=== PATIENT | female | born 1995 ===

== ENCOUNTER 2019-02-17 06:20 | Day surgery (SDC) | payer BC ==
[2019-02-07 17:18] VITALS: BMI 21.2
[2019-02-17] MEDS ORDERED: Propofol 10 mg/ml Inj (20 ML) ONE (07:23)
[2019-02-17] MEDS ORDERED: Midazolam 2 MG/2 ML VIAL ONE (07:23)
[2019-02-17] MEDS ORDERED: Rocuronium 10 mg/ml (5 ml) ONE (07:24)
[2019-02-17] MEDS ORDERED: Lidocaine 1% Inj (20ml) ONE (07:28)
[2019-02-17] MEDS ORDERED: Bupivacaine 0.5% 50 ML IJ ONE (07:39)
[2019-02-17] MEDS ORDERED: Neostigmine Methylsulfate 3mg/3ml Syringe IV ONE (09:03)
[2019-02-17] MEDS ORDERED: Glycopyrrolate 0.2 mg/ml (2ml vial) ONE (09:04)
[2019-02-17] MEDS ORDERED: Bacitracin 500 Units/gm Oint Foilpak UD ONE (09:42)
--- NOTE | 2019-02-17 10:35 | PCM.SURG1 ---
Surgeon's Initial Post Op Note - Surgeon's Notes Surgeon: MD Diane Admission Nurse Coordinator: Per, PGY3. , PGY4 Pre-Operative Diagnosis: Right lobe thyroid goiter Operative Findings: Right lobe thyroid goiter Post-Operative Diagnosis: Right lobe thyroid goiter Operation Performed: Right thyroid lobectomy Specimen/Specimens Removed: right thyroid with isthmus Estimated Blood Loss: EBL {In ML}: 10 Date of Surgery/Procedure: 02/17/19 Time of Surgery/Procedure: 08:00
[2019-02-17] MEDS ORDERED: HYDROmorphone 0.5 mg/0.5 ml ISec IVP PRN ×2 (10:40→10:45)
[2019-02-17] MEDS ORDERED: HYDROmorphone 0.5 mg/0.5 ml ISec IVP ONE ×2 (10:41→11:04)
[2019-02-17] MEDS ORDERED: Lactated Ringer's 1,000 ML IV SCH (10:45)
[2019-02-17] MEDS ORDERED: HYDROmorphone 0.5 mg/0.5 ml ISec ONE ×2 (10:45→11:04)
[2019-02-17 11:53] VITALS: RESP 20
[2019-02-17 12:19] VITALS: TEMP 98.2; O2SAT 97
[2019-02-17 16:55] VITALS: BP 116/66; PULSE 81
--- NOTE | 2019-02-17 21:49 | OP ---
PROCEDURE DATE: 02/17/2019 PREOPERATIVE DIAGNOSIS: Right thyroid goiter. POSTOPERATIVE DIAGNOSIS: Right thyroid goiter. PROCEDURE PERFORMED: Right thyroid lobectomy with isthmusectomy. SURGEON: Tejinder Contreras MD ASSISTANTS: Issac Albarado DO, PGY-3 and Ludwin Wang DO, PGY-4 ANESTHESIOLOGIST: Terence Pressley MD ANESTHESIA: General. ESTIMATED BLOOD LOSS: 10 mL. HISTORY OF PATIENT: This is a 23-year-old female with a history of right thyroid goiter which she says she has been treated medically for the last 10 years. The patient states she has had biopsies of the thyroid, which all came back negative for neoplasm. She does admit to a history of tenderness in the right neck and also a history of dysphagia. DESCRIPTION OF PROCEDURE: The patient was sedated and intubated in the usual sterile fashion. The patient was placed in a supine position with the shoulder roll placed under the shoulders and head extended to expose the anterior neck. The anterior neck was then prepped and draped in the usual sterile fashion all the way down to the clavicles and up to the mandible. Incision was made along the anterior crease of the neck, measuring approximately 5 cm. Dissection was done to the subplatysmal layer. A flap was made up to the thyroid cartilage and also down to the sternal notch. Using an electrocautery, the anterior cervical fascia was then incised longitudinally therefore exposing the anterior neck strap muscles, which were then retracted laterally on both sides exposing the thyroid itself. Upon exposure of the thyroid, dissection was done with a harmonic in order to release the thyroid off of this posterior fascia using the harmonic. Dissection was done all the way on the right lateral aspect, the right superior and the right lower aspects. Care was taken to minimize any bleeding from the veins entering the thyroid. Care was taken to be as close to the thyroid capsule as possible. Upon dissecting the thyroid capsule all the way around on the right side, the right thyroid was able to be exhumed through the excision. Continuing with the harmonic, the isthmus was also dissected and transected as they appeared large and covered the anterior portion of the neck. After removing the right thyroid lobe and the isthmus, this was sent for a fresh frozen pathology. Further examination of the area of surgery was done to identify structures including the parathyroid which was seen and also the recurrent laryngeal nerve which was seen and protected. The nerve was well away from the operating field. Care was then taken to minimize any oozing from the operative bed with the harmonic. The area of the anterior neck was irrigated with normal sterile water and suctioned. Surgicel was used to minimize any further bleeding. The anterior strap muscles were then approximated together using a 3-0 Vicryl in a running fashion. The platysmal layer was also approximated together using a 3-0 Vicryl. Dermal layer was also approximated using a 4-0 Vicryl, and skin was closed with 4-0 Monocryl in a running fashion. Dressing used was Dermabond. Pathology of the specimen came back noncancerous with hyperplastic regions. The patient was then extubated and brought to the postanesthesia care unit without any complications. Estimated blood loss was 10 mL. Issac Albarado DO Tejinder Contreras MD [facility]
== END 2019-02-17 17:50 | disposition home or self-care (01) ==
LOC: SDS 06:20
PROVIDERS: ATTEND General Practice
DX: E04.1 Nontoxic single thyroid nodule (principal); E06.3 Autoimmune thyroiditis
CPT/HCPCS: 60220; 84703; 88307; J0690; J1170; J2250; J2405; J2704; J2710; J3010; J7120 ×2